=== PATIENT | female | born 1945 | race Caucasian/White ===

== ENCOUNTER → 2018-10-01 | Outpatient (CLI) | payer MEDICARE, BC ==
--- NOTE | 2018-10-01 17:13 | PCVCIMAG ---
APPROVED REPORT Study performed: 10/01/2018 12:46:24 EXAM: Comprehensive 2D, Doppler, and color-flow Echocardiogram Patient Location: Echo lab Status: routine BSA: 1.69 HR: 59 bpmBP: 128/60 mmHg Rhythm: Bradycardia Other Information Study Quality: Adequate Indications TIA Echo Enhancing Agent Indication: Rule Out Septal Defect Agent(s) / Amount(s) Used: Agitated Saline cc Comments: Negative bubble study X3 including with valsalva 2D Dimensions IVSd: 9.70 (7-11mm) LVDd: 40.94 mm PWd: 10.13 (7-11mm) LVDs: 29.37 (25-40mm) Left Atrium: 35.39 (27-40mm) Aortic Root: 27.38 mm LV Single Plane 4CH: 54.35 % LV Single Plane 2CH: 54.78 % Biplane EF: 53.9 % Volumes Left Atrial Volume (Systole) Single Plane 4CH: 55.68 mLSingle Plane 2CH: 62.12 mL LA ESV Index: 37.00 mL/m2 Aortic Valve AoV Peak Deep.: 1.59 m/s AO Peak Gr.: 10.11 mmHgLVOT Max P.04 mmHg LVOT Max V: 1.23 m/s Mitral Valve E/A Ratio: 1.2 MV Decel. Time: 214.96 ms MV E Max Deep.: 0.75 m/s MV A Deep.: 0.63 m/s IVRT: 103.81 ms Pulmonary Valve PV Peak Deep.: 1.14 m/sPV Peak Gr.: 5.17 mmHg Pulmonary Vein P Vein S: 0.41 m/sP Vein A: 0.34 m/s P Vein D: 0.57 m/sP Vein A Dur.: 131.5 msec P Vein S/D Ratio: 0.72 Tricuspid Valve TR Peak Deep.: 2.18 m/s TR Peak Gr.: 19.02 mmHg TV Vmax: 0.49 m/s Left Ventricle The left ventricle is normal size. There is normal LV segmental wall motion. There is normal left ventricular wall thickness. Left ventricular systolic function is normal. The left ventricular ejection fraction is within the normal range. LVEF is >55%. Grade I - abnormal relaxation pattern. Right Ventricle The right ventricle is normal size. The right ventricular systolic function is normal. Atria The left atrium size is normal. Aneurysmal atrial septum. Negative bubble study X3 including with valsalva maneuver. The right atrium size is normal. Aortic Valve The aortic valve is normal in structure. No aortic regurgitation is present. There is no aortic valvular stenosis. Mitral Valve The mitral valve is normal in structure. Trace mitral regurgitation. No evidence of mitral valve stenosis. Tricuspid Valve The tricuspid valve is normal in structure. Trace tricuspid regurgitation with PAP of 26 mmHg. Pulmonic Valve The pulmonary valve is normal in structure. There is mild-moderate pulmonic valvular regurgitation. Great Vessels The aortic root is normal in size. IVC is normal in size and collapses >50% with inspiration. Pericardium There is no pericardial effusion. There is no pleural effusion. <Conclusion> The left ventricle is normal size. LVEF is >55%. Grade I - abnormal relaxation pattern. The right ventricle is normal size. The left atrium size is normal. Aneurysmal atrial septum. Negative bubble study X3 including with valsalva maneuver. The aortic valve is normal in structure. Trace mitral regurgitation. Trace tricuspid regurgitation with PAP of 26 mmHg. The aortic root is normal in size. There is no pericardial effusion.
== END | disposition home or self-care (01) ==
LOC: PCVCIMAG 13:33
PROVIDERS: ATTEND Family Medicine
DX: G45.9 Transient cerebral ischemic attack, unspecified (principal); R00.1 Bradycardia, unspecified
CPT/HCPCS: 93306